=== PATIENT | male | born 1945 | race Caucasian/White ===

== ENCOUNTER 2018-08-25 13:41 | Emergency (ER) | payer MEDICARE ==
[~2018-08-25] VITALS: Ht 172.7 cm; Wt 70.0 kg
[2018-08-25 17:12] VITALS: BP 157/83
== END 2018-08-25 17:27 | disposition home or self-care (01) ==
LOC: ED 14:15
DX: S16.1XXA Strain of muscle, fascia and tendon at neck level, initial encounter (principal); S20.211A Contusion of right front wall of thorax, initial encounter; S30.1XXA Contusion of abdominal wall, initial encounter; R51 Headache; N28.1 Cyst of kidney, acquired; E11.9 Type 2 diabetes mellitus without complications; I72.3 Aneurysm of iliac artery; I72.8 Aneurysm of other specified arteries; I25.2 Old myocardial infarction; Z87.891 Personal history of nicotine dependence; Z86.73 Personal history of transient ischemic attack (TIA), and cerebral infarction without residual deficits; V49.59XA Passenger injured in collision with other motor vehicles in traffic accident, initial encounter; Y93.89 Activity, other specified; Y92.410 Unspecified street and highway as the place of occurrence of the external cause; Y99.8 Other external cause status
CPT/HCPCS: 36415; 70450; 72125; 74176; 80047; 99284

== ENCOUNTER → 2018-12-09 | Outpatient (CLI) | payer MEDICARE | END | disposition home or self-care (01) | LOC: CFH 11:42 | PROVIDERS: ATTEND Urology | DX: N28.1 Cyst of kidney, acquired (principal) | CPT/HCPCS: 82565 ==